=== PATIENT | female | born 1975 | race Two or more races ===

== ENCOUNTER 2017-12-19 05:05 | Inpatient (IN) | payer OTHER, MEDICARE ==
[~2017-12-19] VITALS: Ht 167.6 cm; Wt 46.3 kg
[2017-12-19 06:00] VITALS: BP 104/68
[2017-12-19] MEDS ORDERED: MIDAZOLAM HCL 2 MG/2ML VIAL ONE (07:08)
[2017-12-19] MEDS ORDERED: ROCURONIUM BROMIDE 50 MG/5 ML ONE ×2 (07:08→08:29)
[2017-12-19] MEDS ORDERED: FENTANYL PF 100MCG/2ML AMPUL ONE ×3 (07:08→10:45)
[2017-12-19] MEDS ORDERED: BACITRACIN 50000 UNITS/VIAL ONE (07:13)
[2017-12-19] MEDS ORDERED: LIDOCAINE 1%-EPI 1:100,000 20 ML VIAL ONE (07:17)
[2017-12-19] MEDS ORDERED: CEFAZOLIN 2 GM in IV D5W 50 ML IV ONE (07:30)
--- NOTE | 2017-12-19 07:30 | NUR ---
MS RN AM NOTES: PATIENT ALERT AND ORIENTED X 4, RESPIRATION ON ROOM AIR, BRP, NPO POST MIDNIGHT FOR DISSECTOMY, LAMINECTOMY OF LUMBAR AND SACRAL PROCEDURE. CALL LIGHT WITHIN REACH. PATIENT WAS PICKED UP BY OR STAFF FOR SURGERY.
[2017-12-19] MEDS ORDERED: THROMBIN (BOVINE) 5,000 UNITS VIAL TP ONE (08:47)
[2017-12-19] MEDS ORDERED: HEMOSTATIC MATRIX 10 ML 1 EACH PAD MC ONE (08:58)
[2017-12-19] MEDS ORDERED: HYDROMORPHONE INJ 2 MG/ML DISP.SYRIN ONE ×2 (10:28→10:47)
[2017-12-19] MEDS ORDERED: HYDROCODONE/APAP 5/325MG 1 EACH TABLET PO PRN (10:30)
[2017-12-19] MEDS ORDERED: MORPHINE SULFATE INJ 2 MG/ML DISP.SYRIN ONE (10:38)
--- NOTE | 2017-12-19 11:30 | NUR ---
PT JUST CAME BACK FROM [facility]. S/P L SPINE L5-S [address] LACY WITH STABLE V/S.WILL INFORM DR HAGER FOR THE ADMITTING ORDERS.
[2017-12-19] MEDS ORDERED: DIAZ5TAB4 PO (12:18)
[2017-12-19] MEDS ORDERED: TRAM50TA2 PO (12:18)
[2017-12-19] MEDS ORDERED: AMPH10CA PO (12:18)
[2017-12-19] MEDS ORDERED: AMPH20CA11 PO (12:18)
[2017-12-19] MEDS: IV D5/0.45 NACL 1,000 ML IV SCH ×2 (12:34→20:52)
[2017-12-19] MEDS: HEPARIN SODIUM, PORCINE 5000 UNITS/1 ML VIAL SQ SCH ×3 (13:00→21:42)
[2017-12-19] MEDS: CEFAZOLIN 2 GM in IV D5W 50 ML IV SCH ×2 (13:35→18:06)
--- NOTE | 2017-12-19 13:45 | NUR ---
RN NOTE: CALLED PHARMACIST TO CLARIFY ANCEF ADMINISTRATION. BAG STATED DUE 1900, AND PHARMACIST SAID IT WAS OKAY TO ADMINISTER.
--- NOTE | 2017-12-19 13:59 | NUR ---
CLARIFIED HEPARIN 5,000 UNITS SQ TO BE GIVEN WITH DR HAGER WHO STATED THAT ITS OK TO ADMINISTER IT EVEN IF POST SX A FEW HOURS AGO.
[2017-12-19 16:00] VITALS: BP 99/53
--- NOTE | 2017-12-19 18:47 | NUR ---
RN NOTE: PATIENT IS ALERT AND ORIENTED X 3/4. RESPIRATIONS UNLABORED AND EVEN. ASSISTED PATIENT TO REPOSITION AND STAND UP TO STRETCH, WHICH WAS TOLERATED WELL. BEFORE MORPHINE, PAIN AT 10/10. WITH MORPHINE, PAIN TOLERABLE. NO ACUTE DISTRESS AT THE MOMENT. BED LOCKED, SIDE RAILS X2 UP FOR SAFETY.
--- NOTE | 2017-12-19 19:35 | NUR ---
MS RN OPENING NOTES RECEIVED PT IN BED ALERT, AWAKE, VERBALLY RESPONSIVE ,ON O2 VIA N/C RESPIRATIONS EVEN, UNLABORED, NO APPARENT DISTRESS NOTED. CALL LIGHT WITHIN REACH, BED LOCKED IN LOWEST POSITION. IV SITE LAC INTACT, PATENT, KEPT CLEAN AND COMFORTABLE, ATTENDED ALL NEEDS. WILL CONTINUE TO MONITOR ACCORDINGLY.
[2017-12-19 20:00] VITALS: BP 115/46
--- NOTE | 2017-12-19 21:30 | NUR ---
MS RN NOTE PT REFUSED HEPARIN, OFFERED X 3 EXPLAINED BENEFITS, REFUSED, STATED THAT SHE DOES NOR WANT IT TO BE ADMINISTERED AT THIS TIME AND SHE WANTS TO TALK TO HER DOCTOR FIRST TOMORROW. ATTENDED ALL NEEDS. WILL CONTINUE TO MONITOR. Addendum: 12/20/17 at 0443 by JOEY HUGHES RN MS DAHL NOTE PT REFUSED HEPARIN, OFFEREDX3, EXPLAINED BENEFITS, REFUSED, WILL CONTINUE TO MONITOR ACCORDINGLY.
[2017-12-19 22:00] VITALS: BP 115/56
[2017-12-20] MEDS: MORPHINE SULFATE INJ 4 MG/ML DISP.SYRIN IV PRN ×2 (01:05→04:26)
[2017-12-20] MEDS: HEPARIN SODIUM, PORCINE 5000 UNITS/1 ML VIAL SQ SCH (04:54)
--- NOTE | 2017-12-20 06:51 | NUR ---
MS RN CLOSING NOTES PT IN BED, RESTING COMFORTABLY. ON O2 VIA N/C, RESPIRATIONS EVEN, UNLABORED, NO APPARENT DISTRESS NOTED. IV SITE INTACT, PATENT, ARMANDO DRAIN 10ML. CALL LIGHT WITHIN REACH..KEPT CLEAN AND COMFORTABLE. ATTENDED ALL NEEDS. WILL CONTINUE TO MONITOR ACCORDINGLY.
--- NOTE | 2017-12-20 09:00 | NUR ---
RN NOTES PATIENT SEEN BY Dr. ABREU, REMOVED ARMANDO OUTPUT IS 29ML, , REMOVED CAPONE CATHETER 700 ML, DRESSING CHANGED BY SURGEON. ASSIST PATIENT AMBULATE, PATIENT TOLERATED WELL, PATIENT WILL D/C HOME PER MD.
--- NOTE | 2017-12-20 11:42 | NUR ---
DISCHARGE NOTES PATIENT LEFT UNIT WITHOUT SIGN PAPERWORK , AND PRESCRIPTION, CALLED AND LEFT MASSAGE PATIENT [phone], AND SON NAME ERICK PHONE # [phone]. CHARGE NURSE AWARE.
== END 2017-12-20 11:30 | disposition home or self-care (01) | DRG 520 ==
LOC: DS 05:05 → MED 05:45 → UNDODISIN 23:59
PROVIDERS: ADMIT Neurological Surgery; ATTEND Neurological Surgery
PROC: 0SB40ZZ Excision of Lumbosacral Disc, Open Approach (ICD-10-PCS; principal; 2017-12-19 07:30)
DX: M51.17 Intervertebral disc disorders with radiculopathy, lumbosacral region (principal); F41.9 Anxiety disorder, unspecified; M47.27 Other spondylosis with radiculopathy, lumbosacral region; Z98.82 Breast implant status
CPT/HCPCS: 72020-TC; 87081-TC; 88304-TC; 88305-TC; 88311-TC; A6402; J0690; J1100; J1170; J1644; J1885; J2250; J2270; J2405; J2704; J2710; J3010; J3490; J7060; Z7610